=== PATIENT | female | born 1985 | race Caucasian/White ===

== ENCOUNTER 2018-05-20 15:35 | Emergency (ER) | payer OTHER ==
[2018-05-20] MEDS ORDERED: LIDOCAINE JELLY 2%- 5 ML TUBE ONE (16:26)
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
[2018-05-20 17:00] VITALS: BP 121/81; TEMP 98.1; O2SAT 97
== END 2018-05-20 16:56 | disposition home or self-care (01) ==
LOC: ER 15:35
DX: O9A.213 Injury, poisoning and certain other consequences of external causes complicating pregnancy, third trimester (principal); S40.811A Abrasion of right upper arm, initial encounter; V43.12XA Car passenger injured in collision with other type car in nontraffic accident, initial encounter; Y93.89 Activity, other specified; Y92.9 Unspecified place or not applicable
CPT/HCPCS: 99283

== ENCOUNTER 2018-05-28 05:09 | Inpatient (IN) | payer OTHER ==
[2018-05-27 16:50] LABS: RPR Titer ND
[2018-05-27 16:53] LABS: Urine Appearance CLEAR; Urine Blood NEGATIVE (NEG); Urine Color DK YELLOW; Urine Glucose NEGATIVE (NEG); Urine Protein 1+ (NEG); Urine Specific Gravity >=1.030 (1.005-1.030); Urine pH 5.5 (5.0-7.0)
[2018-05-27 16:58] LABS: Absolute Lymphocytes (CBC) 2.9 K/uL (0.7-4.9); Absolute Monocytes 0.8 K/uL (0.1-1.3); Absolute Neutrophil 9.7 K/uL (1.8-8.0); Basophils % 0.2 % (0-1.3); Eosinophils % 0.6 % (0-4.4); Hematocrit 36.1 % (36.0-45.0); Lymphocytes % 21.6 % (15.3-44.8); MCH 27.1 pg (27.0-35.0); MCV 82.4 fL (80-100); MPV 9.4 fL (7.6-11.3); Monocytes % 5.6 % (3.3-12.3); RBC Red Blood Cell Count 4.38 M/uL (3.86-4.86)
[2018-05-27 17:22] LABS: Urine Bilirubin NEGATIVE (NEG); Urine Microscopic Reflex ORDER UMIC
[2018-05-27 17:23] LABS: Calcium Oxalate Crystals- Ur FEW (NONE SEEN); Urine Bacteria 20-50 /HPF (<20); Urine Culture Reflex Order REFLEXED; Urine RBC <5 /HPF (NONE SEEN)
[2018-05-27 21:29] LABS: RPR (Rapid Plasma Reagin) NON-REACT (NON-REACT)
[~2018-05-28 05:09] MED LIST: CARBOPROST TROME 250 MCG/ML IM PRN; METHYLERGONOVINE 0.2MG/ML AMP IM PRN; METOCLOPRAMIDE 10 MG/2mL INJ IV SCH; NA CIT/CITRIC AC 30 ML ORAL UDC PO ONE; Ringers Lactate 1,000 ML IV PRN; Ringers Lactate 1,000 ML IV SCH
[2018-05-28] MEDS ORDERED: CEFAZOLIN/SWI 2gm 2 GM/20 ML SYR IVP SCH (06:00)
[2018-05-28] MEDS ORDERED: FAMOTIDINE 20 MG/2 ML VIAL IV ONE (06:00)
[2018-05-28 06:05] VITALS: BMI 48.9
[2018-05-28 06:22] LABS: Urine Appearance CLEAR; Urine Bilirubin NEGATIVE (NEG); Urine Blood NEGATIVE (NEG); Urine Color DK YELLOW; Urine Glucose NEGATIVE (NEG); Urine Protein NEGATIVE (NEG); Urine Specific Gravity 1.025 (1.005-1.030); Urine pH 5.5 (5.0-7.0)
[2018-05-28 06:23] LABS: Urine Microscopic Reflex NO UMIC
[2018-05-28] MEDS ORDERED: MORPHINE SULFATE/PF 1 MG/ML (10 ML AMP) ONE (07:00)
[2018-05-28] MEDS ORDERED: EPHEDRINE SULF 50 MG/ML VIAL ONE (07:01)
[2018-05-28] MEDS ORDERED: OXYTOCIN 10 UNIT/ML ML IV ONE (07:02)
[2018-05-28] MEDS ORDERED: LIDOCAINE 1% MPF 5 ML VIAL ONE (07:03)
[2018-05-28] MEDS ORDERED: METHYLERGONOVINE 0.2MG/ML AMP IM ONE (07:09)
[2018-05-28] MEDS ORDERED: CARBOPROST TROME 250 MCG/ML IM ONE (07:09)
[2018-05-28] MEDS ORDERED: BUPIVACAINE 0.75% (PF) 2 ML SP ONE (07:11)
[2018-05-28] MEDS ORDERED: NS 0.9% VIAL 10 ML ONE (07:12)
[2018-05-28] MEDS ORDERED: ONDANSETRON HCL 40 MG/20 ML VIAL ONE (07:14)
[2018-05-28] MEDS ORDERED: MIDAZOLAM HCL 2 MG/2 ML INJ ONE (07:48)
[2018-05-28] MEDS ORDERED: METHYLERGONOVINE 0.2 MG TAB PO PRN (08:41)
[2018-05-28] MEDS ORDERED: MEASLES,MUMPS,RUBELLA VAC 0.5ML SQVAC ONE (08:41)
[2018-05-28] MEDS ORDERED: METHYLERGONOVINE 0.2MG/ML AMP IM PRN (08:41)
[2018-05-28] MEDS ORDERED: Oxycodone HCl/Acetaminophen 1 TAB TAB PO PRN (08:41)
[2018-05-28] MEDS ORDERED: CARBOPROST TROME 250 MCG/ML IM PRN (08:41)
[2018-05-28] MEDS ORDERED: ONDANSETRON 4 MG (ODT) TAB PO PRN (08:41)
--- NOTE | 2018-05-28 08:45 | P.BOP ---
Preoperative diagnosis: 39 wk , prior Postoperative diagnosis: same, delivery viable female infant Hot Knife Cutter: Shankar Weinberg Estimated blood loss: 800ml Specimen: placenta Anesthesia: Spinal Complications: None Drain(s): Urinary catheter Transferred to: Other ([id number]) Condition: Good
[2018-05-28 09:31] VITALS: O2SAT 100
[2018-05-28] MEDS: OXYTOCIN/LR 20 UNIT/1,000 ML BAG IV SCH ×2 (13:00→19:45)
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
[2018-05-28] MEDS: KETOROLAC 30 MG/ML INJ IV PRN (16:11)
[2018-05-29] MEDS: OXYTOCIN/LR 20 UNIT/1,000 ML BAG IV SCH (03:35)
--- NOTE | 2018-05-29 04:09 | OP ---
Surgeon: Kam Guzman MD University Counselor: Dr. Weinberg. Anesthesiologist: Alma Delia Murphy and Dr. Dexter Heller. Preoperative Diagnoses: A 39-week , prior section with suspected cephalopelvic dis proportion. Postoperative Diagnoses: A 39-week , prior section with suspected cephalopelvic di sproportion. Procedure: Spinal block anesthesia, repeat section, delivery of viable female infant. Description Of Procedure: After a satisfactory level of spinal block anesthesia and the patient had received 2 g of Ancef for antibiotic prophylaxis, she was prepped and draped in the usual fashion wit h Quiroga catheter in place with SCDs in place. A Pfannenstiel skin incision was made, carried down to the fascia. Fascia was incised with a combination of sharp and blunt dissection. This was separate d from the underlying rectus muscles. These were divided in the midline. The peritoneum identified and incised. The vesicouterine peritoneum was incised. Bladder reflected slightly downward, but was relatively adherent, so deeper reflection was not performed. A low-transverse uterine incision was made above the reflection. A 7 pound, 8 ounce female infant with 8 and 9 was delivered. The c ord was clamped, cut, and the was placed in a warmer. Cord blood was obtained. The placenta was manually removed. The uterus was then exteriorized. The cervix was dilated from above with a ri ng clamp which was passed from the operative field. The uterus was repaired in 2 layers utilizing 0 Vicryl suture in a running nonlocking fashion, second layer used to imbricate the first. The vesicou terine peritoneum was reapproximated with a running unlocked suture of 3-0 Vicryl. The uterus was re turned to the peritoneal cavity which was cleaned of amniotic fluid, debris, and blood clot. The per itoneal cavity was closed by approximating the rectus muscles with simple sutures of 0 Vicryl. The f ascia was closed with #1 PDS from either margin to the middle, subcutaneous tissue was approximated w ith simple sutures of 3-0 Vicryl, subdermal suture of 3-0 Vicryl, and a subcuticular suture of 4-0 Mo nocryl. The patient was taken to recovery room in satisfactory condition with Quiroga catheter and SCD s in place. Sponge and needle counts were correct x2. Estimated Total Blood Loss: Less than 800 mL. CHARLEEN/MARTIN Voice ID: [id number] Report ID: [id number]
[2018-05-29] MEDS: KETOROLAC 30 MG/ML INJ IV PRN (04:26)
[2018-05-29 06:58] LABS: Absolute Lymphocytes (CBC) 1.8 K/uL (0.7-4.9); Absolute Monocytes 0.7 K/uL (0.1-1.3); Absolute Neutrophil 8.7 K/uL (1.8-8.0); Basophils % 0.3 % (0-1.3); Hematocrit 32.6 % (36.0-45.0); Lymphocytes % 16.1 % (15.3-44.8); MCH 27.3 pg (27.0-35.0); MCV 83.1 fL (80-100); MPV 9.3 fL (7.6-11.3); Monocytes % 6.1 % (3.3-12.3); RBC Red Blood Cell Count 3.93 M/uL (3.86-4.86)
[2018-05-29] MEDS ORDERED: Ringers Lactate 1,000 ML IV ONE (07:35)
--- NOTE | 2018-05-29 08:24 | P.PN ---
Date of Service: 05/29/18 S- No complaints except a little gas pain. O-Afeb, vs stable, po h/h ok. Urine culture prelim noted. Was noted pre-op, repeat specimen on catheterized specimen appeared clean. Will likely do a speci -cath specimen tomorrow prior to dismissal and culture that. Abdomen soft bandage dry A- Satisfactory P-Mylicon, Colace, ambulate, po care discussed, as above urine culture on new specimen tomorrow.
[2018-05-29] MEDS: SIMETHICONE 80 MG TAB PO SCH ×3 (08:40→21:25)
[2018-05-29] MEDS: DOCUSATE NA 100 MG CAP PO SCH ×2 (10:05→21:25)
[2018-05-29] MEDS: Oxycodone HCl/Acetaminophen 1 TAB TAB PO PRN ×2 (12:33→18:30)
[2018-05-29] MEDS ORDERED: DOCUSATE NA 100 MG CAP PO ONE (21:29)
[2018-05-29] MEDS ORDERED: SIMETHICONE 80 MG TAB ONE (21:29)
[2018-05-30] MEDS ORDERED: Oxycodone HCl/Acetaminophen 1 TAB TAB ONE (04:55)
[2018-05-30] MEDS ORDERED: MEASLES,MUMPS,RUBELLA VAC 0.5ML SQVAC ONE (07:40)
[2018-05-30 08:55] VITALS: BP 145/79; TEMP 98.7
[2018-05-30 17:26] LABS: HBsAG Nonreactive (Nonreactive)
--- NOTE | 2018-05-30 18:40 | DS ---
Date of Discharge: 05/30/2018 Final Hospital Discharge Diagnosis: A 39 week , delivered, prior section, delivery of viable female . Iron deficiency anemia. Hospital Course: The patient is a 32-year-old, female, 2, para 1-0-0-1, de livered at 39+ weeks gestation by repeat section secondary to variable presentation an d suspected cephalopelvic disproportion. She delivered a 7-pound, 8-ounce female , 8 and 9, by spinal block anesthesia. She was dismissed on the second postop operative day, ambulatory, on a select diet with routine post vaginal and post section activity restrictions. She had an admission hemoglobin and hematocrit of 11.9 and 36.1, dismissal 10.7 and 32.6. She had a negative u rine specimen on Quiroga catheter aspiration. She is RPR nonreactive. She is Rh positive blood type b ecause of rubella nonimmunity. She was immunized prior to dismissal. She was dismissed with a presc ription for Tylenol No. 3 #15 for pain relief and to continue taking her iron and vitamins. She will be seen back my office in 1 week post . CHARLEEN/MARTIN Voice ID: [id number] Report ID: [id number]
== END 2018-05-30 10:15 | disposition home or self-care (01) | DRG 788 ==
LOC: 2ND-WC 05:09
PROVIDERS: ADMIT Specialist; ATTEND Specialist
PROC: 10D00Z1 Extraction of Products of Conception, Low, Open Approach (ICD-10-PCS; principal; 2018-05-28 07:30)
DX: O99.02 Anemia complicating childbirth (principal); D50.9 Iron deficiency anemia, unspecified; O34.211 Maternal care for low transverse scar from previous cesarean delivery; Z3A.39 39 weeks gestation of pregnancy; Z37.0 Single live birth; O62.0 Primary inadequate contractions; O32.2XX0 Maternal care for transverse and oblique lie, not applicable or unspecified; O99.214 Obesity complicating childbirth
CPT/HCPCS: 36415; 81003; 81015; 85025; 86592; 86850; 86870; 86900; 86901; 86922; 87077; 87086; 87088; 87186; 87340; 88307; 90707; J0690; J2210; J2250; J2405; J2590; J2765